=== PATIENT | female | born 1970 | race Caucasian/White ===

== ENCOUNTER 2022-04-12 11:34 | Outpatient (CLI) | payer BC, SELFPAY ==
[2022-04-12 21:50] LABS: Cholesterol* 188 mg/dL (90-199)
[2022-04-12 21:51] LABS: HDL Cholesterol* 43 mg/dL (>=50); LDL Cholesterol Calculated 130 mg/dL (<100); Triglycerides* 75 mg/dL (40-149)
[2022-04-12 21:57] LABS: Glucose* 76 mg/dL (60-115)
== END 2022-04-12 11:35 | disposition home or self-care (01) ==
PROVIDERS: Visit Provider Registered Nurse
DX: Z13.6 Encounter for screening for cardiovascular disorders (principal); Z13.1 Encounter for screening for diabetes mellitus
CPT/HCPCS: 80061; 82947

== ENCOUNTER 2022-06-08 14:41 | Outpatient (CLI) | payer BC, SELFPAY ==
--- NOTE | 2022-06-08 15:00 | CRLHL7_ITS ---
For Patients: As a result of the Cures Act, medical imaging exams and procedure reports are released immediately into your electronic medical record. You may view this report before your referring provider. If you have questions, please contact your health care provider. BILATERAL SCREENING MAMMOGRAM WITH COMPUTER-AIDED DETECTION AND TOMOSYNTHESIS TECHNIQUE: CC and MLO views were obtained. These mammographic images have been obtained using full-field digital technique. These mammographic images were interpreted with the benefit of computer-aided detection. Breast Tomosynthesis was used in this interpretation. COMPARISON FILM: 05/15/21, 04/04/20, 03/19/19. FINDINGS: The breasts are heterogeneously dense, which may obscure small masses IMPRESSION: There is no radiographic evidence for malignancy. ASSESSMENT: BI-RADS Category 1: Negative RECOMMENDATION: Routine screening mammogram in 1 year. A lay language report of this examination will be provided to the patient. Martell Verma M.D. Diagnostic Radiologist [email or web address] Transcribed: 1:23 p.gustavo pulido/Dictated by: Martell Verma MD @ 06/11/2022 12:17:00 PM (Electronically Signed)
== END 2022-06-08 14:42 | disposition home or self-care (01) ==
LOC: MAMMO 14:42
PROVIDERS: PCP Registered Nurse; Visit Provider Registered Nurse
DX: Z12.31 Encounter for screening mammogram for malignant neoplasm of breast (principal); R92.2 Inconclusive mammogram
CPT/HCPCS: 77063; 77067

== ENCOUNTER 2023-01-25 07:31 | Outpatient (CLI) | payer BC, SELFPAY ==
--- NOTE | 2023-01-25 07:45 | CRLHL7_ITS ---
For Patients: As a result of the Cures Act, medical imaging exams and procedure reports are released immediately into your electronic medical record. You may view this report before your referring provider. If you have questions, please contact your health care provider. DIGITAL DIAGNOSTIC BILATERAL MAMMOGRAM USING TOMOSYNTHESIS AND COMPUTER-AIDED DETECTION RIGHT BREAST ULTRASOUND CLINICAL HISTORY: RIGHT breast pain. COMPARISON: 06/08/2022, 05/15/2021, 04/04/2020. TECHNIQUE: Digital BILATERAL mammogram in four projections. Tomosynthesis and CAD utilized. Real-time ultrasound imaging of RIGHT breast with imaging documentation. BREAST COMPOSITION: The breasts are heterogeneously dense, which may obscure small masses. FINDINGS: 3D CC/MLO BILATERAL mammogram images submitted. No suspicious masses or areas of architectural distortion. Circumscribed nodular density is present within medial RIGHT breast. No suspicious calcifications or adenopathy bilaterally. Targeted RIGHT breast ultrasound performed. At 1 o`clock 1 cm from the nipple, there is a simple circumscribed anechoic cyst measuring 6 x 5 x 7 millimeters. A similar cyst is present at 3 o`clock 4 cm from the nipple measuring 10 x 5 x 8 millimeters. IMPRESSION: Benign fibrocystic changes right breast. No evidence of malignancy. RECOMMENDATIONS: Annual BILATERAL screening mammography. Results and recommendations discussed with the patient. BI-RADS Category 2: Benign Dictated by Martell Verma MD @ 01/25/2023 8:48:43 AM jj/Dictated by: Martell Verma MD @ 01/25/2023 8:48:00 AM (Electronically Signed)
--- NOTE | 2023-01-25 08:15 | CRLHL7_ITS ---
For Patients: As a result of the Century Cures Act, medical imaging exams and procedure reports are released immediately into your electronic medical record. You may view this report before your referring provider. If you have questions, please contact your health care provider. PLEASE SEE DIGITAL DIAGNSOTIC BILATERAL MAMMOGRAM PERFORMED SAME DAY CRL:tess pulido/Dictated by: Martell Verma MD @ 01/25/2023 8:48:00 AM (Electronically Signed)
== END 2023-01-25 07:32 | disposition home or self-care (01) ==
LOC: MAMMO 07:32
PROVIDERS: PCP Registered Nurse; Visit Provider Physician Assistant
DX: N64.4 Mastodynia (principal); N60.01 Solitary cyst of right breast
CPT/HCPCS: 76642; 77066; G0279

== ENCOUNTER 2023-12-02 08:47 | Outpatient (CLI) | payer BC, SELFPAY ==
--- OUTSIDE RECORDS SUMMARY | 2023-12-02 08:52 | XMS_ITS | Data Portability ---
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 I reviewed the pathophysiology of the disorder, potential contributing and risk factors as well as treatment options to address their complaints. Today panoramic imaging was obtained. In this radiograph the mandibular condyles were partially visualized and appear flattened and irregular suggestive of DJD. I've not recommended advanced imaging at this time. From a treatment perspective I've recommended rehabilitative treatment approach. Treatment begins with home self management designed to rest the muscles of mastication and reduce inflammation in the temporomandibular joints. This includes heat and ice compresses, eating a soft food or pain-free diet, bilateral chewing, identifying and decreasing daytime muscle tension and modification of their sleep position. I explained and demonstrated in great detail self management of TMD. Beyond self management I do believe that they would benefit from a maxillary intraoral appliance to help stabilize the musculoskeletal structures of the jaw. In addition I've recommended rehabilitation with physical therapy. The goal of treatment is to restore function and reduce pain. I do believe that by following these treatment recommendations there is a good prognosis for reduction of symptoms. Today, digital scans were taken to begin fabrication of a custom intraoral stabilization device. History today was obtained from the patient. The patient has 5+ diagnoses they would like to address. Their symptoms are chronic. This case is moderate complexity because of multiple diagnoses with chronic symptoms. Data reviewed included: procedure documentation. Risk of complications including disease progression were discussed. Today time spent may have included a review of past records, history taking, review of diagnoses, contributing factors, treatment plan, diagnostic testing, prognosis, expectations, risks and complications of treatment/no treatment, discussions with other providers and completing documentation was 70 minutes. I've suggested that the patient return for follow-up care in 2-4 weeks. Not available 05/16/2021 15:52:45 06/05/2021 06/05/2021 Patient was seen today for follow-up and insertion of a maxillary stabilization intraoral appliance. Diagnosis and contributing factors were reviewed. Questions were answered. Self-management and home exercise techniques were reviewed. Today the intraoral appliance was fit to patient comfort. Specifically, adjustments were made to balance appliance occlusion. Instructions on proper use and care were discussed/reviewed both written and verbally. I suggested that the patient uses the appliance as a retraining tool to aid in relaxing their jaw muscles - put it in 20-30 minutes before bed time, keeping their jaw in a relaxed balanced position, simultaneously applying a heat compress on the jaw. Potential side effects were reviewed. The patient was advised to discontinue oral appliance use should they experience untoward side effects or be unable to return for follow-up care. The patient was advised to return in 3-4 weeks to reassess their progress and continue their treatment plan as previously outlined. In addition to oral appliance insertion today we review home self-care strategies as previously discussed. We discussed additional treatment options including rehabilitative treatment with physical therapy. History today was obtained from the patient. The patient has 5+ diagnoses they would like to address. Their symptoms are unchanged. This case is moderate complexity because of multiple diagnoses with chronic symptoms. Discussion with treatment team members after visit was necessary. Risk of complications including disease progression were discussed. Today time spent may have included a review of past records, history taking, review of diagnoses, contributing factors, treatment plan, diagnostic testing, prognosis, expectations, risks and complications of treatment/no treatment, discussions with other providers and completing documentation was 25 minutes. I've suggested that the patient return for follow-up care in 2-4 weeks. Not available 06/05/2021 16:05:32 06/05/2021 06/05/2021 Symptoms are consistent with TMD diagnosis. Patient is moderate complexity with 3 personal factors/comorbidit ies affecting the plan of care, moderate complexity decision making and an evolving clinical presentation. Examination yields 3 affected structures, participation restrictions and/or functional limitations. The patient will benefit from PT to decrease pain and increase function with . Contributing factors include muscle guarding, oral habits, stress and poor posture. Treatment will include exercises to release muscle tension and increase strength and stability. Modalities to be used may include manual therapy, ultrasound and electrical stimulation. Frequency will be 1x/1-2 weeks for 6-8 weeks, tapering as able for a total of 8-12 visits over 3 months. Short term goals (to be met in 3 weeks): *Improve patient's awareness of muscle tension and muscle guarding habits to decrease pain *Improve patient's awareness of neutral head, neck and jaw position to improve posture *Improve patient's awareness of proper sleep positioning and ergonomics *Improve jaw ROM to mm IO 35 mm *Improve cervical ROM to 75 degrees rotation *Decrease pain level 2-3/10 *Bath with HEP and self care strategies to manage symptoms longterm goals (to be met in 3 months) *Neutral head, neck and scapular posture 80% of the time *Neutral jaw posture 80% of the time *Improve jaw ROM to 40 mm IO and WNL lateral excursion *Improve cervical ROM to WFL *Decrease pain level 0-1/10 *Bath with HEP and self care strategies to manage symptoms *Pain free chewing with moderately hard diet 80% of the time *Pain free talking *Pain free oral hygiene [email or web address] Not available 06/05/2021 15:33:37 Plan of Treatment Reminders Order Date Submit Date Provider Last Modified By Organization Details Last Modified Time Details Appointments None recorded. Lab None recorded. Referral physical therapist referral 2021 022 Not available 15:53:53 Procedures None recorded. Surgeries None recorded. Imaging None recorded. Medication Orders None recorded. Patient TargetsNo targets recorded. Patient Instructions Encounter Date Encounter Id Patient Instructions Last Modified By Organization Details Last Modified Time 05/16/2021 [id number] oral appliance preparation* Not available 05/16/2021 15:53:53 Self Care for TMD Not availabl e 05/16/2021 15:53:53 06/05/2021 [id number] Plan: Medicare requires a corporate statistical financial analyst or OUTSIDE REPAIRER SPECIAL to authorize our plan of care. If you agree with the plan as outlined above, please sign, date and fax back to [phone]. Thank you. Primary MD signature: Date: [email or web address] Not available 06/05/2021 09:23:41 Reason for Referral Physical Therapist Referral for Myofascial pain Referring Physician: Loretta Mcdonnell, Pain Management, Encounter Date: 05/16/2021 Results Created Date Observation Date Name Description Value Unit Range Abnormal Flag Note LastModifiedBy Organization Detail LastModifiedTime 05/16/19 22 05/16/2021 oral appli ance prepa ratio n* Type of appliance maxill barry stabil izatio n applia nce Not Available [facility] [address] [facility] [address], [place], [address], 05/16/2021 15:44:56 05/16/19 XR, ortho panto gram No observ ation record ed. Not Available 2021 10:12:29 Result Notes None recorded. 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 79442773507 814971 Active 2021 bilatera l disc displace ment with reductio n CELIA Esquivel [facility] 15:44:40 Temporom andibula r joint crepitus 113806294 Active 2021 left tmj Loretta jimenez [facility] 2 15:44:53 Limited opening of mandible 585048287 Active 2021 Loretta jimenez [facility] 2 15:44:20 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 90191986 Completed 201205/16/2021 Loretta jimenez [facility] 2 10:15:55 Migraine 19400654 Completed 201205/16/2021 Loretta jimenez [facility] 2 10:15:41 Arthralg ia of temporom andibula r joint 63637440 Active 2012 Not Available [facility] 6 02:39:02 Fibromyo sitis 74614828 Completed 201205/16/2021 Loretta jimenez [facility] 2 10:15:37 Episodic tension- type headache 704164933 Active 2012 Not Available [facility] 6 02:52:31 Lupus erythema tosus 169768332 Completed 201205/16/2021 Loretta jimenez [facility] 2 10:15:33 Problem Notes None recorded. Procedures Surgical History Date Name Laterality Status Provider Name and Address Organization Details Recorded Time 06/06/19 77064 - PT Eval Moderate Complexity completed Tracy jimenez [facility] 06/05/2021 09:23:41 06/06/19 47477: Therapeutic Exercise completed CELIA Valle [facility] 06/05/2021 09:23:41 06/06/19 Oral appliance completed Lazaro jimenez [facility] 06/05/2021 15:43:02 05/16/19 Orthopantogram completed Loretta jimenez [facility] 05/16/2021 15:53:19 Imaging Results Imaging Date Name Status LastModified by Organization Details LastModified Time 05/16/2021 XR, orthopantogram completed Inform ation not available 05/16/2021 10:12:29 Procedure Notes None recorded. Medical Equipment None Reported. Allergies No known drug allergies Medications Name Sig Start Date Stop Date Status Note LastModified by Organization Details LastModified Time Plaquenil 200 mg tablet Take 1 tablet every day by oral route. active Not Available Not Available No t Available Adderall 15 mg tablet Take 1 tablet every day by oral route. active Not Available Not Available No t Available Wellbutrin SR 150 mg tablet, 12 hr sustained-r elease Take 1 tablet twice a day by oral route. active Not Available Not Available No t Available bupropion HCl 75 mg tablet TAKE 1/2 TABLET BY MOUTH TWICE A DAY active Not Available Not Available No t Available gabapentin 300 mg capsule Take 2 capsules 3 times a day by oral route. active Not Available Not Available No t Available norethindro ne (contracept mervat) 0.35 mg tablet TAKE 1 TABLET BY MOUTH EVERY DAY active Not Available Not Available No t Available dextroamphe tamine-amph etamine ER 15 mg 24hr capsule,ext end release TAKE 1 CAPSULE BY MOUTH TWICE DAILY. FILL MINIMUM OF 28 DAYS AFTER RX DATE active Not Available Not Available No t Available bupropion HCl SR 200 mg tablet,12 hr sustained-r elease TAKE 1 TABLET BY MOUTH TWICE A DAY active Not Available Not Available No t Available gabapentin 05/16 completed Not Available Not Available Not Available Vitals Date Recorded Body height Heart rate Body temperature Systolic blood pressure Diastolic blood pressure Provider Name and Address Organization Details Last Updated DateTime 05/16/2021 165.1 cm 83 /min 98.1 [degF] 103 mm[Hg] 77 mm[Hg] Karli Fiore [facility] 09:42:47 Date Recorded Body mass index (BMI) Body weight Provider Name and Address Organization Details Last Updated DateTime 05/16/2021 25.6 kg/m2 84835.22 g Loretta Mcdonnell [facility] 05/16/2021 14:07:41 Date Recorded Body height Body temperature Provider N kiarra and Address Organization Details Last Updated DateTime 06/05/2021 165.1 cm 97.7 [degF] Lazaro Walker [facility] 06/05/2021 15:35:14 Social History Question Answer Notes LastModified by Organizat ion Details LastModified Time Are You Currently Employed? Yes Information not available 05/16/2021 What Is The Highest Grade Or Level Of School You Have Completed Or The Highest Degree You Have Received? 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 Single Information not available 05/16/2021 Do You Feel Stressed (tense, Restless, Nervous, Or Anxious, Or Unable To Sleep At Night)? [id number] [email or web address] Information not available 06/05/2021 Sex: Unknown Functional Status None recorded. Mental Status None recorded. Family History Relationship Description Onset Age of this Age Resolved Age Notes Mother Arthritis Mother Depressive disorder Father Arthritis Father Depressive disorder Father Substance abuse Father Rheumatoid arthritis Sister Arthritis Sister Depressive disorder Sister Substance abuse Sister Rheumatoid arthritis Notes:12/05/2015: Father: Hy pertension, Heart disease Mother: Cancer, Arthritis Sister: Headaches, migraine Medical History Condition Response Other N Depression Y Muscle, Joint, or Bone Problems Y Arthritis Y Headaches Y Gynecological HistoryNo gynecological history recorded. Obstetrics History GPAL:G 0 P 0 0 0 0 Immunizations Vaccine Type Date Status Provider Name and Address Organization Details Recorded Time SARS-COV-2 (COVID-19) vaccine, UNSPECIFIED 03/23/2021 completed Karli jimenez [facility] 05/16/2021 09:45:51 influenza, split (incl. purified surface antigen) 12/23/2012 karol jimenez [facility] 06/05/2021 14:27:18 pneumococcal polysaccharide PPV23 12/23/2012 karol jimenez [facility] 06/05/2021 14:27:18 Past Encounters Encounter ID Performer Location Encounter Start Date Encounter Closed Date Diagnosis/Indication Diagnosis SNOMED-CT Code Diagnosis ICD10 Code [id number] [place] [id number] 8 05/16/2021 09:20:48 05/16/2021 11:03:04 Episodic tension-type headache 612456605 G44.219 Arthralgia of temporomandibular joint 73742620 M26.629 Limited op ening of mandible 872866314 M26.52 Temporoman dibular joint crepitus 521225971 M26.659 Bilateral temporomandibular joint articular disc disorder 6942622911 8041405 M26.633 Myofascial pain 01595223 9 M79.11 M79.12 [id number] Tracy Orozcoroc ramirez [address] [id number] 06/05/2021 14:27:09 06/05/2021 15:31:29 Arthralgia of temporomandibular joint 74943539 M26.629 Bilateral temporomandibular joint articular disc disorder 8735789253 7721883 M26.633 Episodic t ension-type headache 855825827 G44.219 Limited op ening of mandible 880032988 M26.52 Myofascial pain 26166432 9 M79.11 M79.12 Temporoman dibular joint crepitus 661356069 M26.659 [id number] oLretta Greenbergedie ramirez [address] [place] [id number] 06/05/2021 14:25:48 06/05/2021 15:30:28 Myofascial pain 438283226 M79.11 M79.12 Bilateral temporomandibular joint articular disc disorder 8699528611 0805227 M26.633 Temporoman dibular joint crepitus 979950784 M26.659 Arthralgia of temporomandibular joint 39149786 M26.629 Limited op ening of mandible 541879023 M26.52 Episodic t ension-type headache 591081332 G44.219 Health Concerns Section Related Observation LastModified by Organization Detai ls LastModified Time None Recorded Concern Status LastModified by Organization Details LastModified Time None Recorded Advance Directives Directive None Recorded Payers Encounter Date Sequence Insurance Name Policy Number Policy Busch Covered Member ID Busch Member ID Guarantor Name 05/16/2021 1 [place] [employer] [facility] Jessica Starks [id number] 3 Jessica Starks 06/05/2021 1 [place] [employer] [facility] Jessica Starks [id number] 3 Jessica Starks 06/05/2021 1 [place] [employer] [facility] Jessica Starks [id number] 3 Jessica Starks Notes Date Note Type Note Provider Name and Address Organization Details Recorded Time 05/16/2021 text/html HPI Notes: gener al HPI for jaw, face, TMD pain Reported by patient. Onset: started 10-15 year(s) ago Location: bilateral; masseteric; preauricular; temporal; ear Quality: shooting; sharp; stabbing Severity: moderate Duration constant Symptom triggers: clenching; bruxism; chews hard/crunchy/chewy foods Aggravating Factors: yawning; wide mouth opening; limited opening Alleviating Factors: NSAIDs; acetaminophen; heat; ice; soft foods Associated Symptoms: jaw clicking bilateral; jaw popping bilateral; headaches Patient presents today for evaluation of a possible temporomandibular disorder. These symptoms are chronic and began with no clear triggering events. Previous consultation include evaluation with her dentist. Symptoms are bilateral and aggravated by clenching and grinding of their teeth. The patient is aware of teeth clenching and grinding. Jessica is a pleasant 50 y.o. female presenting with bilateral jaw pain, tmj clicking, limited opening, neck pain, and tension-type headaches. She is a former patient of [facility] from 2013. At that time, she was prescribed a splint and physical therapy. She had been managing her symptoms until a few weeks ago when she began experiencing right-sided severe tmj and jaw pain and morning headaches. The pain has significantly improved since then. Jessica states that she is no longer wearing a splint because she received new crowns, and the splint no longer fits. She has not worn a splint for several years. Since discontinuing use, she has cracked a maxillary crown due to bruxism and needed a replacement. Loretta Mcdonnell [facility] 05/16/2021 15:53:59 06/05/2021 text/html HPI Notes: gener al HPI for jaw, face, TMD pain Reported by patient. Onset: started 10-15 year(s) ago Location: bilateral; masseteric; preauricular; temporal; ear Quality: shooting; sharp; stabbing Severity: moderate Duration constant Symptom triggers: clenching; bruxism; chews hard/crunchy/chewy foods Aggravating Factors: yawning; wide mouth opening; limited opening Alleviating Factors: NSAIDs; acetaminophen; heat; ice; soft foods Associated Symptoms: jaw clicking bilateral; jaw popping bilateral; headaches Patient presents today for PT evaluation regarding jaw pain, neck pain and headaches. Symptoms began with stress, anxiety and oral habits. Functional limitations and participation restrictions include eating, yawning, talking, laughing, oral hygiene. Personal factors and/or comorbidities affecting the plan of care include: *Clenching *Bruxism *Leaning on chin *Biting lips/cheeks night time *Tongue thrusting *Unilateral chewing, right *Medium stress level *Low anxiety level *Caffeine 3 per day *Sleep position sides The following is from Dr. Mcdonnell's evaluation. I reviewed this information with the patient for my clarity regarding her symptom history: Patient presents today for evaluation of a possible temporomandibular disorder. These symptoms are chronic and began with no clear triggering events. Previous consultation include evaluation with her dentist. Symptoms are bilateral and aggravated by clenching and grinding of their teeth. The patient is aware of teeth clenching and grinding. Jessica is a pleasant 50 y.o. female presenting with bilateral jaw pain, tmj clicking, limited opening, neck pain, and tension-type headaches. She is a former patient of [facility] from 2013. At that time, she was prescribed a splint and physical therapy. She had been managing her symptoms until a few weeks ago when she began experiencing right-sided severe tmj and jaw pain and morning headaches. The pain has significantly improved since then. Jessica states that she is no longer wearing a splint because she received new crowns, and the splint no longer fits. She has not worn a splint for several years. Since discontinuing use, she has cracked a maxillary crown due to bruxism and needed a replacement. 06/05/21 Pt reports history of TMD/GAFFNEY pain which worsened about 2 months ago due to stress. 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 Pt reports neck, shoulder and jaw tension. Primary complaint today is right side GAFFNEY pain located pentecostal/forehead region. She wakes up with GAFFNEY; pain is constant and dull GAFFNEY worse with sitting x 50' during treatment sessions and with stress GAFFNEY better with relaxed shoulders; has used deep breathing, elliptical/walks and yoga in the past; has not been consistent with these lately Goals: to get back on track with physical therapy exercises AROM cervical spine R-70 degrees, L-65 degrees rotation; improved to 75/70 end of session IO 28 mm; improved to 32 mm end of session Next: jaw stretch, sleep position, postural retraining CELIA Valle [facility] 06/05/2021 15:41:16 06/05/2021 text/html HPI Notes: gener al HPI for jaw, face, TMD pain Reported by patient. Onset: started 10-15 year(s) ago Location: bilateral; masseteric; preauricular; temporal; ear Quality: shooting; sharp; stabbing Severity: moderate Duration constant Symptom triggers: clenching; bruxism; chews hard/crunchy/chewy foods Aggravating Factors: yawning; wide mouth opening; limited opening Alleviating Factors: NSAIDs; acetaminophen; heat; ice; soft foods Associated Symptoms: jaw clicking bilateral; jaw popping bilateral; headaches Patient presents today for insertion of a mandibular stabilization oral appliance. They note no changes in symptoms which along with prior data was reviewed, updated and documented in the patient history of present illness. She describes compliance with home self care as previously recommended. Jessica reports that she had her first p/t session today. She plans on beginning her home exercises. She has not noticed any changes of symptoms yet. CELIA Esquivel - [facility] 06/05/2021 16:06:30 OBGyn Episode No OBEpisode recorded.
--- OUTSIDE RECORDS SUMMARY | 2023-12-02 08:52 | XMS_ITS | Encounter Summary ---
Author Organization [facility] Address [address] [place] [address] Care Team Providers Care Insurance And Benefits Clerk Name Role Phone Kaylin Lopez MD Primary Care Provider [phone] Reason for Visit * Reason Comments Refill Encounter Details Date Type Department Care Team (Late st Contact Info) Description 10/16/2023 Refill Rheumatology at [facility] [address] [address] Tex Alicia MD [address] [place], [place] [phone] Refill Social History Tobacco Use Types Packs/Day Years Used Date Smoking Tobacco: Never Smokeless Tobacco: Never Alcohol Use Standard Drinks/Week Comments No 0 (1 standard drink = 0.6 oz pur e alcohol) PHQ-2 Answer Date Recorded PHQ-2 Score 0 05/30/2023 Sex and Gender Information Value Date Recorded Sex Assigned at Not on file Gender Identity Not on file Sexual Orientation Not on file documented as of this encounter Nursing Notes * Trudi Saini RN - 10/16/2023 2:46 PM CDT LV: 02/07/23 NV: 02/13/24 Renewed medication per medication refill standing order. 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
--- OUTSIDE RECORDS SUMMARY | 2023-12-02 08:52 | XMS_ITS | Clinical Summary ---
Author Organization [facility] Address [address] [place] [address] Care Team Providers Care Humanities Professor Name Role Phone Kaylin Lopez MD Primary Care Provider [phone] Source Comments You are receiving this document as you are listed as the primary care provider,follow-up provider, or the patient has been referred to you for consultation.This is in compliance with the Medicare and[facility] EHR Incentive Program,which states Providers who transition their patient to another setting of careor provider of care or refers their patient to another provider of care shouldprovide summary care record for each transition of care or referral. [facility] Allergies No known active allergies Medications Medication Sig Dispensed Refills Start Date End Date Status SKIP 0.35 MG tablet Take 1 Tablet (0.35 mg) by mouth daily. 0 10/20/2018 Active buPROPion (WELLBUTRIN SR) 200 MG 12 hour release tabletIndicatio ns:Persistent depressive disorder (HRC) TAKE 1 TABLET TWICE A DAY 180 Tablet 1 05/30/2023 Active amphetamine-dex troamphetamine XR (ADDERALL XR) 10 MG 24 hour release capsule Take 1 Capsule (10 mg) by mouth daily. (Take with 5 mg for 15 mg daily dose). 30 Capsule 05/30/2023 Active amphetamine-dex troamphetamine XR (ADDERALL XR) 5 MG 24 hour release capsule Take 1 Capsule (5 mg) by mouth daily. (Take with 10 mg for 15 mg daily dosage). 30 Capsule 05/30/2023 Active amphetamine-dex troamphetamine XR (ADDERALL XR) 10 MG 24 hour release capsule Take 1 Capsule (10 mg) by mouth daily. (Take with 5 mg for 15 mg daily dose). FILL A MINIMUM OF 28 DAYS AFTER PRESCRIPTION DATE. 30 Capsule 05/30/2023 Active amphetamine-dex troamphetamine XR (ADDERALL XR) 5 MG 24 hour release capsule Take 2 capsules (10 mg) in the morning and 1 capsule (50 mg) in the afternoon. *pharmacy does not have 10 mg capsules* 90 Capsule 07/05/2023 Active amphetamine-dex troamphetamine XR (ADDERALL XR) 5 MG 24 hour release capsule Take 1 Capsule (5 mg) by mouth daily. (Take with 10 mg for 15 mg daily dosage). 30 Capsule 2023 Active amphetamine-dex troamphetamine XR (ADDERALL XR) 10 MG 24 hour release capsule Take 1 Capsule (10 mg) by mouth daily. (Take with 5 mg for 15 mg daily dose). 30 Capsule 2023 Active gabapentin (NEURONTIN) 300 MG capsuleIndicati ons:Undifferent iated connective tissue disease (HRC),Fibromyal zakiya TAKE 3 CAPSULES(900 MG) BY MOUTH DAILY AT BEDTIME 270 Capsule 2 10/16/2023 Active hydroxychloroqu ine (PLAQUENIL) 200 MG tabletIndicatio ns:Undifferenti ated connective tissue disease (HRC),Fibromyal zakiya take 1 tablet by mouth daily. 90 Tablet 11/21/2023 Active hydroxychloroqu ine (PLAQUENIL) 200 MG tabletIndicatio ns:Undifferenti ated connective tissue disease (HRC),Fibromyal zakiya Take 1 Tablet (200 mg) by mouth daily. 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 [address] [address] Tex Alicia MD Refill 10/08/2023 Refill Rheumatology at [address] [address] Tex Alicia MD Refill from Last 3 Months Immunizations Name Administration Dates Next Due Flu Vac (3+ yrs) 01/25/2012,03/08/2011 Fluzone Qiv Multidose Vial 0 .25 (6-35 Mos) 01/30/2013 H1n1 Miv Sanofi 3+ Yr (Injected) 04/15/2009 Influenza (Flucelvax), Prese rv Free QIV 02/07/2023 Influenza IIV4 (Quadrivalent ) 0.5mL (12159) 01/30/2021,02/04/2020,12/12/2018, 018,03/19/2016,01/30/2013,04/15/2009 Moderna Monovalent 12+ 05/29/2020,04/22/2020 Td 11/26/2002 Tdap 08/25/2013,10/24/2010 Family History Medical History Relation Name Comments Depression Father Hyperlipidemia Father Hypertension Father Anxiety Mother Asthma Mother Cancer, Breast Mother Depression Mother Asthma Daughter 2 Cancer, Ovary Maternal Grandmother Anxiety Sister 1 Depression Sister 1 Anxiety Sister 2 Depression Sister 2 Asthma Sister 3 Hyperlipidemia Sister 4 Migraines Sister 5 Relation Name Status Comments Father Alive Mother Alive Daughter 1 Alive Daughter 2 Maternal Grandfather (Age 56) [place] Maternal Grandmother Alive Paternal Grandfather (Age 65) st omach cancer Paternal Grandmother Alive Sister 1 Alive Sister 2 Alive Sister 3 Sister 4 Sister 5 Son Alive Social History Tobacco Use Types Packs/Day Years Used Date Smoking Tobacco: Never Smokeless Tobacco: Never Alcohol Use Standard Drinks/Week Comments No 0 (1 standard drink = 0.6 oz pur e alcohol) PHQ-2 Answer Date Recorded PHQ-2 Score 0 05/30/2023 Sex and Gender Information Value Date Recorded Sex Assigned at Not on file Gender Identity Not on file Sexual Orientation Not on file Last Filed Vital Signs Vital Sign Reading Time Taken Comments Blood Pressure 117/55 01/26/2019 7:54 AM COMPLIANCE COUNSEL Pulse 97 01/26/2019 7:54 AM COMPLIANCE COUNSEL Temperature 36.7 ??C (98.1 ??F) 05/26/2017 2:29 PM CS T Respiratory Rate 17 11/05/2017 10:2 3 AM CDT Oxygen Saturation 99% 05/26/2017 2:29 PM COMPLIANCE COUNSEL Inhaled Oxygen Concentration - - Weight 69.4 kg (152 lb 14.4 oz) 01/30/2021 8:48 AM COMPLIANCE COUNSEL Height 165.1 cm (5' 5) 01/26/2019 7:54 AM COMPLIANCE COUNSEL Body Mass Index 25.44 01/26/2019 7:54 AM COMPLIANCE COUNSEL Plan of Treatment Upcoming Encounters Date Type Department Care Team (Late st Contact Info) Description 02/13/2024 8:00 AM COMPLIANCE COUNSEL Appointment Rheumatology at [facility] [address] [phone] Tex Alicia MD [facility] [place] [address] Health Maintenance Due Date Last Done Comments Colon Cancer Screening Plan Due 1972 Hep C Screening (Preventive Services) 1972 MTM Covered 1972 HIV Screening (Preventive Services) 1988 HepB (1) 10/02/1991 Cervical Cancer Screening Due 01/28/2004 01/27/2004, 06/28/2003, 11/26/2002 Adult Preventive Visit 10/25/2011 10/24/2010 Cholesterol 2017 Mammogram 05/15/2022 05/15/2021, 03/25, 03/19/2019, Additional history exists Zoster/Shingles (1 of 2) 2022 DTaP/Tdap/Td (3 - Tdap) 08/26/2023 08/26/19 14, 10/24/2010, 11/26/2002 COVID-19 Vaccine ( season) 2023 05/11/2022, 03/23/2021, 05/29/2020, Additional history exists Influenza (#1) 2023 02/07/2023, 01/23, 01/30/2021, Additional history exists Pneumococcal Aged Out 12/23/2012 No longer eligi ble based on patient's age to complete this topic HepA Aged Out No longer eligi ble based on patient's age to complete this topic Hib Aged Out No longer eligi ble based on patient's age to complete this topic IPV (Polio) Aged Out No longer eligi ble based on patient's age to complete this topic MCV4 Aged Out No longer eligi ble based on patient's age to complete this topic Procedures Procedure Name Priority Date/Time Associated Diagnosis Comments MAMMOGRAM SC 05/15/2021 ANATOMICAL PATH LIQUID BASED Routine 01/27/2004 9:36 AM COMPLIANCE COUNSEL from Last 3 Months or Most Recently Relevant to Health Maintenance Results * MAMMOGRAM SC (05/15/2021) Kaylin Lopez MD DUMMY/OTHER/AR * Pap Smear (01/27/2004 9:36 AM COMPLIANCE COUNSEL) PAP Smear Liquid Based SEE TEXT No normal range HP CONVERSION Comment: Patient: HAYDEN PRINCE ? CERVICAL CYTOLOGY REPORT Pathology # ??[id number] ?Date Obtained: [id number] ? Date Received: CYTOLOGIC IMPRESSION: Negative for intraepithelial lesion or malignancy. ? ADDITIONAL DATA LMP: ?01-16-04 CLINICAL HIST ? PREV PAP ABNL 06-28-03 LIQUID BASED PAP CERVICAL SPECIMEN ADEQUACY: ?? Satisfactory. ENDOCERVICAL CELLS: ??Present. Verified 02/04/04 by: ??Horacio Hogan MD ? (electronic signature) 01/27/2004 9:36 AM COMPLIANCE COUNSEL Obdulia Evans MD LAB_1 HP CONVERSION from Last 3 Months or Most Recently Relevant to Health Maintenance Care Teams Humanities Professor Relationship Specialty [place] [address] [place] [address] PCP - General 11/24/15
--- OUTSIDE RECORDS SUMMARY | 2023-12-02 08:52 | XMS_ITS | Encounter Summary ---
Author Organization [facility] [employer] Address [address] [place] [address] Care Team Providers Care Laser Beam Trim Operator Name Role Phone Kaylin Lopez MD Primary Care Provider [phone] Reason for Visit * Reason Comments Refill Encounter Details Date Type Department Care Team (Late st Contact Info) Description 10/08/2023 Refill Rheumatology at [facility] [address] [address] Tex Alicia MD [address] [place], [place] [phone] Refill Social History Tobacco Use Types Packs/Day [...] Nursing Notes * Trudi Saini RN - 10/08/2023 1:26 PM CDT Images from the original note were not included. Disp Refills Start End gabapentin (NEURONTIN) 300 MG capsule 270 Capsule 3 02/07/2023 -- Sig - Route: Take 3 Capsules (900 mg) by mouth daily at bedtime. - Oral Sent to pharmacy as: Gabapentin 300 MG Oral Capsule (NEURONTIN) Class: E-Prescribing Date/Time Signed: 02/07/2023 08:34 E-Prescribing Status: Receipt confirmed by pharmacy (02/07/2023 8:34 AM HOME CARE RN) Dispense history showing 3 refills still remaining. Advised pharmacy to please fill. documented in this encounter Plan of Treatment Upcoming Encounters Date Type Department Care Team (Late st Contact Info) Description 02/13/2024 8:00 AM HOME CARE RN Appointment Rheumatology at [facility] [address] [address] [place], [place] [phone] Tex Alicia MD [address] [place], [place] [address] documented as of this encounter Visit Diagnoses Diagnosis Undifferentiated connective tissue disease (HRC) Unspecified diffuse connective tissue disease Fibromyalgia Mylagia and myositis, unspecified documented in this encounter Care Teams Laser Beam Trim Operator Relationship Specialty [place] [address] [place] [address] PCP - General 11/24/15 documented as of this encounter
--- OUTSIDE RECORDS SUMMARY | 2023-12-02 08:52 | XMS_ITS | Encounter Summary ---
Author Organization [employer] Address [address], [place] [address] Care Team Providers Care Computer Support Technician Name Role Phone Kaylin Lopez MD Primary Care Provider [phone] Reason for Visit * Reason Comments Refill hydroxychloroquine ( PLAQUENIL) 200 MG tablet [Pharmacy Med Name: Hydroxychloroquine Sulfate 200mg Tablet] Encounter Details Date Type Department Care Team (Late st Contact Info) Description 11/21/2023 Refill Rheumatology at [address] [place] [address] Tex Alicia MD [address] [place] [address] Refill (hydroxychloroquine (PLAQUENIL) 200 MG tablet [Pharmacy Med Name: Hydroxychloroquine Sulfate 200mg Tablet]) Social History Tobacco Use Types Packs/Day Years [...] Nursing Notes * Trudi Saini RN - 11/21/2023 2:26 PM CDT hydroxychloroquine (PLAQUENIL) 200 MG tablet 90 Tablet 3 02/07/2023 -- Sig - Route: Take 1 Tablet (200 mg) by mouth daily. - Oral Sent to pharmacy as: Hydroxychloroquine Sulfate 200 MG Oral Tablet (PLAQUENIL) Class: E-Prescribing Date/Time Signed: 02/07/2023 08:34 E-Prescribing Status: Receipt confirmed by pharmacy (02/07/2023 8:34 AM CLAIMS AGENT RIGHT OF WAY) Sent to local pharmacy for a year in Jan, new mail order pharmacy requesting. Remaining refill sentas requested. Renewed medication per medication refill standing order. Requested Prescriptions Signed Prescriptions Disp Refills hydroxychloroquine (PLAQUENIL) 200 MG tablet 90 Tablet 0 Sig: take 1 tablet by mouth daily. Authorizing Provider: TEX LAICIA Ordering User: TRUDI SAINI * Reina Davies Xrwcomm - 11/21/2023 2:25 PM CDT hydroxychloroquine (PLAQUENIL) 200 MG tablet [Pharmacy Med Name: Hydroxychloroquine Sulfate 200mg Tablet] Hydroxychloroquine -> Ensure the patient had an Eye Exam in the last 6 months to a year. -> Refill x 3 months (until due for an office visit) Last qualifying visit: 02/07/2023 (in Rheumatology) Next scheduled visit: 02/13/2024 (in Rheumatology) Last ordered by TEX ALICIA: 02/07/2023 (287 days ago) QTY: 90, Refills: 3, Sig: take 1 tablet (200mg) by mouth daily. (changed but equivalent) [employer] Embedded Refills, Reference: [id number], 11/21/2023 2:25:18 PM CDT, Pool: RHEUM PNREFILL [[id number]] ([id number]) documented in this encounter Plan of Treatment Upcoming Encounters Date Type Department Care Team (Late st Contact Info) Description 02/13/2024 8:00 AM CLAIMS AGENT [address] OF [address] Appointment Rheumatology at [facility] [address] [phone] Tex Alicia MD [address] [place], [place] [phone] documented as of this encounter Visit Diagnoses Diagnosis Undifferentiated connective tissue disease (HRC) Unspecified diffuse connective tissue disease Fibromyalgia Mylagia and myositis, unspecified documented in this encounter Care Teams Computer Support Technician Relationship Specialty [place] [address] [place] [address] PCP - General 11/24/15 documented as of this encounter
--- OUTSIDE RECORDS SUMMARY | 2023-12-02 08:52 | XMS_ITS | Encounter Summary ---
Author Organization [employer] Address [address] [place] [address] Care Team Providers Care Bale Coverer Name Role Phone Kaylin Lopez MD Primary Care Provider [phone] Encounter Details Date Type Department Care Team (Late st Contact Info) Description 12/18/2016 Correspondence [facility] [address] [place] [address] [place] [address] [place], [place] [phone] EXAM ORDER Social History Tobacco Use Types Packs/Day Years Used Date Smoking Tobacco: Never Smokeless Tobacco: Never Alcohol Use Standard Drinks/Week Comments No 0 (1 standard drink = 0.6 oz pur e alcohol) Sex and Gender Information Value Date Recorded Sex Assigned at Not on file Gender Identity Not on file Sexual Orientation Not on file documented as of this encounter Plan of Treatment Upcoming Encounters Date Type Department Care Team (Late st Contact Info) Description 02/13/2024 8:00 AM INDUSTRIAL ENGINEERING MANAGER Appointment Rheumatology at [facility] [address] [address] Tex Alicia MD [address] [place], [place] [phone] documented as of this encounter Visit Diagnoses Not on filedocumented in this encounter Care Teams Bale Coverer Relationship Specialty [place] [address] [place] [address] PCP - General 11/24/15 documented as of this encounter
--- OUTSIDE RECORDS SUMMARY | 2023-12-02 08:52 | XMS_ITS | Encounter Summary ---
Author Organization [employer] Address [address], [place] [address] Care Team Providers Care Tool Technician Name Role Phone Kaylin Lopez MD Primary Care Provider [phone] Encounter Details Date Type Department Care Team (Late st Contact Info) Description 09/22/2014 Emergency Room External to [facility], Provider ABDOMINAL PAIN Social History Tobacco Use Types Packs/Day Years [...] st Contact Info) Description 02/13/2024 8:00 AM MICROBIOLOGY DIRECTOR Appointment Rheumatology at [facility] [address] [phone] Tex Alicia MD [address] [place], [place] [phone] documented as of this encounter Visit Diagnoses Not on filedocumented in this encounter Care Teams Tool Technician Relationship Specialty [place] [address] [place] [address] PCP - General 11/24/15 documented as of this encounter
--- NOTE | 2023-12-02 10:09 | W.ANESCHARGE ---
Anesthesia Charges Start Date/Time Anesthesia Start Date: 12/02/23 Anesthesia Start Time: 09:32 Stop Date/Time Anesthesia Stop Date: 12/02/23 Anesthesia Stop Time: 10:05
--- NOTE | 2023-12-02 10:41 | W.ANESCHARGE ---
Anesthesia Charges Start Date/Time Anesthesia Start Date: 12/02/23 Anesthesia Start Time: 09:32 Stop Date/Time Anesthesia Stop Date: 12/02/23 Anesthesia Stop Time: 10:05
== END 2023-12-02 08:48 | disposition home or self-care (01) ==
LOC: OP CLINIC 08:49
PROVIDERS: PCP Family Medicine; Visit Provider Surgery
DX: Z12.11 Encounter for screening for malignant neoplasm of colon (principal); D12.8 Benign neoplasm of rectum; K57.30 Diverticulosis of large intestine without perforation or abscess without bleeding
CPT/HCPCS: 00811; 45385; 88305; J2704